=== PATIENT | female | born 1975 | race Caucasian/White ===

== ENCOUNTER 2018-02-13 21:55 | Emergency (ER) | payer MEDICAID ==
[2018-02-13 22:07] VITALS: BP 132/85; PULSE 92; TEMP 98.4; O2SAT 97
--- NOTE | 2018-02-13 22:27 | C.PDOC ---
History Of Present Illness Patient complains of pain and swelling to right ankle for 2 weeks. She denies falling or injury to ankle but has pain with walking. She went to see her doctor who prescribed diclofenac gel and it helped with swelling but pain persists. Time Seen by Provider: 02/13/18 22:18 Chief Complaint (Nursing): Lower Extremity Problem/Injury History Per: Patient History/Exam Limitations: no limitations Onset/Duration Of Symptoms: Days Current Symptoms Are (Timing): Still Present Severity: Moderate Past Medical History Reviewed: Historical Data, Nursing Documentation, Vital Signs Vital Signs: Last Vital Signs Temp 98.4 F 02/13/18 22:04 Pulse 92 H 02/13/18 22:04 Resp 20 02/13/18 22:55 BP 132/85 02/13/18 22:04 Pulse Ox 97 02/13/18 22:27 - Medical History PMH: Anemia, Arthritis, Asthma, Migraine - [facility] Procedures CLOSURE SKIN & SUBCUTANEOUS NEC (09/19/13) TETANUS TOXOID ADMINIST (09/19/13) Family History: States: Unknown Family Hx - Social History Hx Tobacco Use: No Hx Alcohol Use: No Hx Substance Use: No - Immunization History Hx Tetanus Toxoid Vaccination: No Hx Influenza Vaccination: No Hx Pneumococcal Vaccination: No Review Of Systems Except As Marked, All Systems Reviewed And Found Negative. Musculoskeletal: Positive for: Other (ankle pain) Physical Exam - Physical Exam Appears: Non-toxic, No Acute Distress Skin: Warm, Dry, No Ecchymosis Head: Atraumatic, Normacephalic Eye(s): bilateral: Normal Inspection Neck: Normal ROM Chest: Symmetrical Extremity: Left: Atraumatic, No Pedal Edema, Normal Color And Temperature, Normal ROM, Right: Bony Point Tenderness (lateral malleolus), Limited ROM To Joint (pain with dorsiflexion), Normal Color And Temperature ED Course And Treatment O2 Sat by Pulse Oximetry: 97 Medical Decision Making Medical Decision Making: Impression: Ankle pain; No clinical signs of septic joint, gout, cellulitis Plan: * Xray ankle Progress: Xray viewed by me showing no acute fracture or dislocation. Patient advised to continue with NSAID and can follow up with podiatry if the pain persists Disposition Counseled Patient/Family Regarding: Diagnosis, Need For Followup - Disposition Referrals: Shaik Alexandra MD [Primary Care Provider] - Hi Rodriguez MD [Staff Provider] - Destiney Capone DPM [Staff Provider] - Disposition: HOME/ ROUTINE Disposition Time: 22:55 Condition: GOOD Additional Instructions: Your xray was normal, no fracture. Please apply ice to area 15 minutes three times a day. Take Motrin as needed for pain every 6 hours, with food to not upset stomach. Follow up with orthopedic if pain persists over one week. Instructions: Ankle Sprain Forms: [email or web address] ([place]) - POA Present On Arrival: Blood Incompatibility - Clinical Impression Clinical Impression: Ankle pain, right
[2018-02-13 22:55] VITALS: RESP 20
--- NOTE | 2018-02-14 08:53 | RAD ---
Date of service: 02/13/2018 PROCEDURE: Right Ankle Radiographs. HISTORY: Pain and swelling, denies injury COMPARISON: None FINDINGS: BONES: Bone alignment and mineralization are normal. There is no acute displaced fracture or bone destruction. JOINTS: Normal. Ankle mortise maintained. Talar dome intact SOFT TISSUES: There is mild lateral soft swelling. OTHER FINDINGS: None. IMPRESSION: No acute fracture or dislocation.
== END 2018-02-13 22:55 | disposition home or self-care (01) ==
LOC: C.ER 21:55 → SUPCPDRO 21:55 → C.ER 22:55
DX: M25.571 Pain in right ankle and joints of right foot (principal)